=== PATIENT | male | born 1985 | race African-American/Black ===

== ENCOUNTER 2023-05-06 18:17 | Emergency (ER) | payer MEDICAID, OTHER ==
[~2023-05-06] VITALS: Ht 188 cm; Wt 78.0 kg
[2023-05-06 18:39] VITALS: O2SAT 100
[2023-05-06] MEDS ORDERED: FAMOTIDINE 20MG TABLET PO ONE (18:45)
[2023-05-06] MEDS ORDERED: TRAMADOL 50MG TABLET PO ONE (18:45)
[2023-05-06] MEDS ORDERED: ONDANSETRON 4MG ODT PO ONE (18:45)
[2023-05-06 20:07] LABS: EOSINOPHILS % 0.2 % (0.0-5.0); HEMATOCRIT. 43.4 % (42.0-52.0); HEMOGLOBIN. 13.8 g/dL (14.0-18.0); LYMPHOCYTES % 13.5 % (20.0-50.0); MEAN CORPUSCULAR HEMOGLOBIN 27.4 pg (28.0-32.0); MEAN CORPUSCULAR HGB CONC 31.9 g/dL (31.0-37.0); MEAN PLATELET VOLUME 9.3 fl (7.4-10.4); MONOCYTES % 4.9 % (2.0-8.0); NEUTROPHILS % 81.4 % (40.0-76.0); PLATELET 295 x1000/uL (130-400); RED BLOOD CELL COUNT 5.05 mill/uL (4.7-6.1); RED CELL DISTRIBUTION WIDTH 16.6 % (11.6-14.6); WHITE BLOOD COUNT 10.6 x1000/uL (4.5-11.0)
[2023-05-06 20:15] LABS: INR 0.9
[2023-05-06 20:21] LABS: ALANINE AMINOTRANSFERASE 9 IU/L (10-49); ALBUMIN 4.5 g/dL (3.2-4.8); ASPARTATE AMINOTRANSFERASE 17 IU/L (<34); BILIRUBIN TOTAL 0.3 mg/dL (0.1-1.0); CALCIUM 9.3 mg/dL (8.7-10.4); CARBON DIOXIDE 33 mEq/L (21-32); CHLORIDE 104 mEq/L (98-107); CREATININE 0.9 mg/dL (0.6-1.3); GLUCOSE 120 mg/dL (70-105); POTASSIUM 3.8 mEq/L (3.5-5.1); SODIUM 141 mEq/L (136-145); UREA NITROGEN BLOOD 7 mg/dL (9-23)
[2023-05-06] MEDS ORDERED: SODIUM CHLORIDE 0.9% 1,000 ML IV ONE (20:45)
[2023-05-06] MEDS ORDERED: MORPHINE SULFATE 4 MG/ML CPJ (NOT FOR IM USE) IV ONE (20:45)
[2023-05-06 23:45] VITALS: BP 132/78
[2023-05-06] MEDS ORDERED: MORPHINE SULFATE 4 MG/ML CPJ (NOT FOR IM USE) IV NR (23:45)
[2023-05-07] MEDS ORDERED: OMEP10CA5 MT (01:39)
[2023-05-07] MEDS ORDERED: ONDA4TAB11 PO ×2 (01:39)
[2023-05-07 01:49] VITALS: PULSE 76; RESP 16; TEMP 98.2
== END 2023-05-07 01:51 | disposition home or self-care (01) ==
LOC: ER 18:17
DX: R10.13 Epigastric pain (principal); F12.90 Cannabis use, unspecified, uncomplicated
CPT/HCPCS: 80053; 83605; 83690; 85025; 85610; 86850; 86900; 86901; 36415; 71045; 93005; 96361; 96374; 96376; 99285; Q0162; J2270; J7030; Z7610 ×2

== ENCOUNTER 2023-06-16 16:55 | Emergency (ER) | payer MEDICAID, OTHER ==
[~2023-06-16] VITALS: Ht 188 cm; Wt 82.0 kg
[~2023-06-16 16:55] MED LIST: OMEP10CA5 MT; ONDA4TAB11 PO
[2023-06-16 17:04] VITALS: O2SAT 99
[2023-06-16 17:49] LABS: DIFFERENTIAL COMMENT 0; EOSINOPHILS % 0.5 % (0.0-5.0); HEMATOCRIT. 46.3 % (42.0-52.0); HEMOGLOBIN. 14.6 g/dL (14.0-18.0); LYMPHOCYTES % 12.2 % (20.0-50.0); MEAN CORPUSCULAR HEMOGLOBIN 26.7 pg (28.0-32.0); MEAN CORPUSCULAR HGB CONC 31.5 g/dL (31.0-37.0); MEAN CORPUSCULAR VOLUME 84.7 fL (80.0-94.0); MEAN PLATELET VOLUME 9.6 fl (7.4-10.4); MONOCYTES % 6.8 % (2.0-8.0); NEUTROPHILS % 80.5 % (40.0-76.0); PLATELET 268 x1000/uL (130-400); RED BLOOD CELL COUNT 5.46 mill/uL (4.7-6.1); RED CELL DISTRIBUTION WIDTH 15.7 % (11.6-14.6); WHITE BLOOD COUNT 11.4 x1000/uL (4.5-11.0)
[2023-06-16 18:03] LABS: ALANINE AMINOTRANSFERASE 10 IU/L (10-49); ALBUMIN 4.6 g/dL (3.2-4.8); ASPARTATE AMINOTRANSFERASE 20 IU/L (<34); BILIRUBIN TOTAL 0.4 mg/dL (0.1-1.0); CALCIUM 9.3 mg/dL (8.7-10.4); CARBON DIOXIDE 28 mEq/L (21-32); CHLORIDE 104 mEq/L (98-107); GLUCOSE 140 mg/dL (70-105); PROTEIN TOTAL 7.9 g/dL (6.0-8.3); SODIUM 138 mEq/L (136-145); UREA NITROGEN BLOOD 8 mg/dL (9-23)
[2023-06-16] MEDS ORDERED: MAGNESIUM/ALUMINUM HYDROXIDE/SIMETHICONE 30ML UDC PO NR (23:30)
[2023-06-16] MEDS ORDERED: FAMOTIDINE 20MG/2ML VIAL IV NR (23:30)
[2023-06-16] MEDS ORDERED: DICYCLOMINE HCL 10MG/ML 2ML VIAL IM NR (23:30)
[2023-06-16] MEDS ORDERED: SODIUM CHLORIDE 0.9% 1,000 ML IV NR (23:30)
[2023-06-16] MEDS ORDERED: KETOROLAC 15MG/ML VIAL IV NR (23:30)
[2023-06-16] MEDS ORDERED: ONDANSETRON HCL 4MG/2ML INJ IV NR (23:30)
[2023-06-17] MEDS ORDERED: MORPHINE SULFATE 4 MG/ML CPJ (NOT FOR IM USE) IV ONE (02:15)
[2023-06-17 02:41] VITALS: BP 142/85; PULSE 77; RESP 19
[2023-06-17] MEDS ORDERED: ONDA4TAB50 MT (03:38)
[2023-06-17] MEDS ORDERED: OMEP20CA14 MT (03:38)
[2023-06-17] MEDS ORDERED: ACET-2708 PO (03:38)
== END 2023-06-17 03:46 | disposition home or self-care (01) ==
LOC: ER 16:55
DX: R11.2 Nausea with vomiting, unspecified (principal); R10.84 Generalized abdominal pain; F12.10 Cannabis abuse, uncomplicated; M79.10 Myalgia, unspecified site; R19.7 Diarrhea, unspecified
CPT/HCPCS: 99284; 80053; 83690; 85025; 36415; 93005; 96372; 96374; 96375; 96361; J0500; J3490; J1885; J2405; J2270

== ENCOUNTER 2024-04-23 09:12 | Emergency (ER) | payer MEDICAID ==
[~2024-04-23] VITALS: Ht 188 cm; Wt 91.0 kg
[~2024-04-23 09:12] MED LIST changes: +ACET-2708 PO; +OMEP20CA14 MT; +ONDA-239 PO; -ONDA4TAB11 PO; +ONDA4TAB50 MT
[2024-04-23 09:19] VITALS: O2SAT 98
[2024-04-23 10:02] LABS: BASOPHILS % 0.1 % (0.0-2.0); EOSINOPHILS % 2.3 % (0.0-5.0); HEMATOCRIT. 44.1 % (42.0-52.0); HEMOGLOBIN. 14.1 g/dL (14.0-18.0); LYMPHOCYTES % 18.4 % (20.0-50.0); MEAN CORPUSCULAR HEMOGLOBIN 26.5 pg (28.0-32.0); MEAN CORPUSCULAR HGB CONC 31.9 g/dL (31.0-37.0); MEAN CORPUSCULAR VOLUME 83.2 fL (80.0-94.0); MEAN PLATELET VOLUME 8.7 fl (7.4-10.4); MONOCYTES % 8.5 % (2.0-8.0); NEUTROPHILS % 70.7 % (40.0-76.0); PLATELET 334 x1000/uL (130-400); RED CELL DISTRIBUTION WIDTH 18.4 % (11.6-14.6); WHITE BLOOD COUNT 9.3 x1000/uL (4.5-11.0)
[2024-04-23 10:14] LABS: CHLORIDE 105 mEq/L (98-107); INR 0.9; PARTIAL THROMBOPLASTIN TIME 27.7 sec (23.4-31.0); POTASSIUM 3.7 mEq/L (3.5-5.1); PROTHROMBIN TIME 10.6 sec (9.6-11.0); SODIUM 138 mEq/L (136-145)
[2024-04-23 10:15] LABS: CALCIUM 9.6 mg/dL (8.7-10.4); CARBON DIOXIDE 26 mEq/L (21-32)
[2024-04-23 10:20] LABS: CREATININE 0.9 mg/dL (0.6-1.3); GLUCOSE 102 mg/dL (70-105); UREA NITROGEN BLOOD 7 mg/dL (9-23)
[2024-04-23 10:22] LABS: ALANINE AMINOTRANSFERASE 16 IU/L (10-49); ALBUMIN 4.7 g/dL (3.2-4.8); ASPARTATE AMINOTRANSFERASE 20 IU/L (<34); BILIRUBIN DIRECT 0.1 mg/dL (<=3.0)
[2024-04-23] MEDS: PANTOPRAZOLE 40MG DR TABLET PO ONE (10:22)
[2024-04-23] MEDS: DIAZEPAM 2 MG TABLET PO ONE (10:22)
[2024-04-23] MEDS: MAGNESIUM/ALUMINUM HYDROXIDE/SIMETHICONE 30ML UDC PO ONE (10:22)
[2024-04-23 10:23] LABS: BILIRUBIN TOTAL 0.4 mg/dL (0.1-1.0)
[2024-04-23] MEDS: ONDANSETRON 4MG ODT PO ONE (10:23)
[2024-04-23 11:05] LABS: ETHANOL BLOOD < 10 mg/dL (<10)
[2024-04-23] MEDS ORDERED: OMEP40CA20 MT (11:17)
[2024-04-23] MEDS ORDERED: MAG-55 MT (11:18)
[2024-04-23 11:25] VITALS: BP 111/74; PULSE 62; RESP 18; TEMP 36.94740; O2SAT 98
[2024-04-23 13:20] LABS: CLARITY URINE CLEAR (CLEAR); COLOR URINE YELLOW (YELLOW); GLUCOSE URINE NEGATIVE (NEGATIVE); KETONES URINE NEGATIVE (NEGATIVE); LEUKOCYTE ESTERASE URINE NEGATIVE (NEGATIVE); NITRITE URINE NEGATIVE (NEGATIVE); OCCULT BLOOD URINE NEGATIVE (NEGATIVE); PH URINE 5.5 (4.5-8.0); PROTEIN URINE TRACE (NEGATIVE); SPECIFIC GRAVITY URINE 1.025 (1.005-1.030)
[2024-04-23 13:36] LABS: *AMPHETAMINES SCREEN URINE NEGATIVE (NEGATIVE); *BENZODIAZEPINES SCREEN URINE NEGATIVE (NEGATIVE)
[2024-04-23 13:37] LABS: *BARBITURATES SCREEN URINE NEGATIVE (NEGATIVE); *COCAINE SCREEN URINE PRESUMPTIVE POSITIVE (NEGATIVE); CANNABINOID URINE SCREEN PRESUMPTIVE POSITIVE (NEGATIVE); ECSTASY MDMA SCREEN URINE NEGATIVE (NEGATIVE); METHADONE URINE SCREEN NEGATIVE (NEGATIVE); OPIATES URINE SCREEN NEGATIVE (NEGATIVE); PHENCYCLIDINE URINE SCREEN NEGATIVE (NEGATIVE)
[2024-04-23 13:49] LABS: BACTERIA URINE 1+; MUCUS URINE 2+ /lpf (NONE/TRACE); RBC URINE NONE SEEN /hpf (0-2); SQUAMOUS EPITHELIAL CELL URINE NONE SEEN /lpf (RARE/1+); YEAST URINE NONE SEEN
== END 2024-04-23 11:28 | disposition home or self-care (01) ==
LOC: ER 09:18
DX: K29.70 Gastritis, unspecified, without bleeding (principal); K64.8 Other hemorrhoids; F12.10 Cannabis abuse, uncomplicated; F41.9 Anxiety disorder, unspecified; Z79.899 Other long term (current) drug therapy
CPT/HCPCS: 80076; 80305; 80048; 81003; 80320; 83690; 85025; 85610; 85730; 86850; 86900; 86901; 36415; 93005; 99284; Q0162; Z7610; G0480